=== PATIENT | male | born 2005 | race Hispanic/Latino ===

== ENCOUNTER 2024-11-22 18:12 | Emergency (ER) | payer SELFPAY ==
[2024-11-22] MEDS ORDERED: Dexamethasone 10 MG/ML VIAL ONE (18:42)
[2024-11-22] MEDS ORDERED: Cephalexin 250 MG CAP ONE (18:48)
== END 2024-11-22 19:00 | disposition home or self-care (01) ==
LOC: BURERS 18:12
DX: L30.9 Dermatitis, unspecified (principal)
CPT/HCPCS: 96372; 99283; J1100

== ENCOUNTER 2024-12-19 19:22 | Emergency (ER) | payer SELFPAY ==
[2024-12-19] MEDS ORDERED: Cephalexin 250 MG CAP ONE (19:38)
== END 2024-12-19 19:44 | disposition home or self-care (01) ==
LOC: BURERS 19:22
DX: L03.116 Cellulitis of left lower limb (principal); L03.115 Cellulitis of right lower limb
CPT/HCPCS: 99283